=== PATIENT | female | born 1960 | race Caucasian/White ===

== ENCOUNTER 2017-01-31 10:22 | Emergency (ER) | payer OTHER ==
[~2017-01-31] VITALS: Ht 160 cm; Wt 131.5 kg
[2017-01-31 10:30] VITALS: BP 149/81
--- NOTE | 2017-01-31 10:46 | Emergency Room Report ---
History of Present Illness General Chief Complaint: Chest Pain Source: Patient Present Illness HPI 56-year-old female no significant past medical history p/w chest pain for 1 hour. Chest pain started while driving. Localized to substernal area, no radiation to back or other areas, sharp in nature, gradual in onset,, one episodes. Also reports slight lightheadedness Denies SOB. Denies palpitations, diaphoresis, n/v. This is the first occurrence of chest pain. EMS gave her 2 baby aspirin and nitroglycerin which helped the pain Denies fever, chills, cough, abd pain. Denies trauma. Patient has never had a stress test. Patient has never had a cardiac catheterization. Denies smoking, no family history of cardiac disease at a young age. Allergies: Coded Allergies: CODEINE (Unverified Allergy, Unknown, 01/31/17) Patient History Past Medical History: see triage record Past Surgical History: none Pertinent Family History: none Reviewed Nursing Documentation: PMH: Agreed, PSxH: Agreed Nursing Documentation-PMH Past Medical History: No Stated History Review of Systems All Other Systems: negative except mentioned in HPI Physical Exam Vital Signs Date Time Temp Pulse Resp B/P (MAP) Pulse Ox O2 Delivery O2 Flow Rate FiO2 01/31/17 10:20 97.0 83 18 149/81 98 Room Air Sp02 EP Interpretation: reviewed, normal General Appearance: normal inspection, well appearing, no apparent distress, alert, GCS 15, non-toxic Head: normocephalic, atraumatic Eyes: bilateral eye normal inspection, bilateral eye PERRL, bilateral eye EOMI ENT: normal ENT inspection, normal pharynx, normal voice, moist mucus membranes Neck: normal inspection, full range of motion, supple Respiratory: normal inspection, lungs clear, normal breath sounds, no respiratory distress, no retraction, no wheezing, speaking full sentences, chest symmetrical Cardiovascular #1: normal inspection, regular rate, rhythm, no edema, normal capillary refill Cardiovascular #2: 2+ radial (R), 2+ radial (L) Gastrointestinal: normal inspection, non tender, soft, non-distended, no guarding Musculoskeletal: normal inspection, back normal, normal range of motion, non- tender Neurologic: normal inspection, alert, oriented x3, responsive, motor strength/ tone normal, sensory intact, normal gait, speech normal Psychiatric: normal inspection, judgement/insight normal, memory normal Skin: normal inspection, normal color, no rash, warm/dry, well hydrated, normal turgor Medical Decision Making Diagnostic Impression: Primary Impression: Chest pain ER Course 56-year-old female presenting with chest pain DDX: ACS vs. CHF vs. pneumonia vs. gastritis/GERD vs. pneumothorax Plan: IV access, obtain labs including troponin, EKG, CXR ASPIRIN ALREADY GIVEN BY EMS ER course: Labs: troponin negative Patient remained chest pain free during ED stay. Disposition: Sign out patient to -repeat troponin -DC if negative -cardiology fu in 1 week Please note that this Emergency Department Report was dictated using [employer] dynamics engineer technology software, occasionally this can lead to erroneous entry secondary to interpretation by the dictation equipment. EKG Diagnostic Results EP Interpretation: Yes Rate: normal Rhythm: NSR ST Segments: T wave flattening in V5 and V6 ASA given to patient: Yes Rhythm Strip EP Interpretation: Yes Rate: 70 Rhythm: NSR, no PVCs, no ectopy Chest X-ray CXR: Ordered: Yes 1 view Indication: Chest pain EP interpretation: Yes Interpretation: No consolidation, no effusion, no PTX, no acute cardiopulmonary disease Impression: No acute disease Electronically signed by Shawna Burns MD Laboratory Tests Test 01/31/17 10:40 White Blood Count 8.1 K/UL (4.8-10.8) Red Blood Count 4.66 M/UL (4.20-5.40) Hemoglobin 14.4 G/DL (12.0-16.0) Hematocrit 42.1 % (37.0-47.0) Mean Corpuscular Volume 90 FL (80-99) Mean Corpuscular Hemoglobin 31.0 PG (27.0-31.0) Mean Corpuscular Hemoglobin Concent 34.3 G/DL (32.0-36.0) Red Cell Distribution Width 11.9 % (11.6-14.8) Platelet Count 330 K/UL (150-450) Mean Platelet Volume 8.7 FL (6.5-10.1) Neutrophils (%) (Auto) 55.7 % (45.0-75.0) Lymphocytes (%) (Auto) 34.9 % (20.0-45.0) Monocytes (%) (Auto) 6.7 % (1.0-10.0) Eosinophils (%) (Auto) 1.9 % (0.0-3.0) Basophils (%) (Auto) 0.8 % (0.0-2.0) Sodium Level 141 MMOL/L (136-145) Potassium Level 3.9 MMOL/L (3.5-5.1) Chloride Level 105 MMOL/L (98-107) Carbon Dioxide Level 24 MMOL/L (21-32) Anion Gap 12 mmol/L (5-15) Blood Urea Nitrogen 13 mg/dL (7-18) Creatinine 0.9 MG/DL (0.55-1.30) Estimate Glomerular Filtration Rate > 60 mL/min (>60) Glucose Level 104 MG/DL (74-106) Calcium Level 9.4 MG/DL (8.5-10.1) Total Bilirubin 0.3 MG/DL (0.2-1.0) Aspartate Amino Transferase (AST) 29 U/L (15-37) Alanine Aminotransferase (ALT) 38 U/L (12-78) Alkaline Phosphatase 84 U/L (46-116) Total Creatine Kinase 89 U/L (26-308) Creatine Kinase MB < 0.5 NG/ML (0.0-3.6) Creatine Kinase MB Relative Index 0.5 Troponin I 0.000 ng/mL (0.000-0.056) Pro-B-Type Natriuretic Peptide 88 pg/mL (0-125) Total Protein 7.7 G/DL (6.4-8.2) Albumin 3.6 G/DL (3.4-5.0) Globulin 4.1 g/dL Albumin/Globulin Ratio 0.9 (1.0-2.7) L Last Vital Signs Date Time Temp Pulse Resp B/P (MAP) Pulse Ox O2 Delivery O2 Flow Rate FiO2 01/31/17 10:31 97.0 83 18 149/81 98 Room Air Disposition: HOME, SELF-CARE Condition: Improved Patient Instructions: Nonspecific Chest Pain Shawna Burns M.D. Jan 31, 2017 10:45
[2017-01-31 11:39] LABS: BASOPHILS % (AUTO) 0.8 % (0.0-2.0); EOSINOPHILS % (AUTO) 1.9 % (0.0-3.0); LYMPHOCYTES % (AUTO) 34.9 % (20.0-45.0); MEAN CORPUSCULAR HGB CONC 34.3 G/DL (32.0-36.0); MEAN CORPUSCULAR VOLUME 90 FL (80-99); MEAN PLATELET VOLUME 8.7 FL (6.5-10.1); MONOCYTES % (AUTO) 6.7 % (1.0-10.0); NEUTROPHILS % (AUTO) 55.7 % (45.0-75.0); PLATELET COUNT 330 K/UL (150-450); RED BLOOD COUNT 4.66 M/UL (4.20-5.40); RED CELL DISTRIBUTION WIDTH 11.9 % (11.6-14.8); WHITE BLOOD COUNT 8.1 K/UL (4.8-10.8)
--- NOTE | 2017-01-31 11:45 | Diagnostic Imaging Report ---
Indication: Chest pain Technique: One view of the chest Comparison: none Findings: The heart is enlarged. Lungs and pleural spaces are clear Impression: No acute process Cardiomegaly
[2017-01-31 12:26] LABS: ALANINE AMINOTRANSFERASE 38 U/L (12-78); ALBUMIN/GLOBULIN RATIO 0.9 (1.0-2.7); ANION GAP 12 mmol/L (5-15); ASPARTATE AMINO TRANSFERASE 29 U/L (15-37); CALCIUM 9.4 MG/DL (8.5-10.1); CARBON DIOXIDE 24 MMOL/L (21-32); CHLORIDE 105 MMOL/L (98-107); CKMB < 0.5 NG/ML (0.0-3.6); CREATININE 0.9 MG/DL (0.55-1.30); GLOMERULAR FILTRATION RATE > 60 mL/min (>60); POTASSIUM 3.9 MMOL/L (3.5-5.1); SODIUM 141 MMOL/L (136-145); TOTAL PROTEIN 7.7 G/DL (6.4-8.2)
[2017-01-31 12:58] VITALS: BP 108/50
[2017-01-31 14:13] VITALS: BP 123/79
[2017-01-31 15:07] VITALS: BP 132/86
[2017-01-31 15:10] VITALS: BP 132/86
== END 2017-01-31 15:10 | disposition home or self-care (01) ==
LOC: EDBD 10:22 → EMR 13:24
DX: R07.89 Other chest pain (principal); R42 Dizziness and giddiness; Z88.6 Allergy status to analgesic agent; I51.7 Cardiomegaly
CPT/HCPCS: 36415; 71010; 80053; 82550; 82553; 83880; 84484; 85025; 99283